=== PATIENT | female | born 1955 | race Two or more races ===

== ENCOUNTER 2018-01-12 11:07 | Emergency (ER) | payer MEDICAID ==
[~2018-01-12] VITALS: Ht 165.1 cm; Wt 74.8 kg
[2018-01-12 11:23] VITALS: BP 131/61
--- NOTE | 2018-01-12 12:56 | Emergency Room Report ---
History of Present Illness General Chief Complaint: Generalized Weakness Source: Patient (Lizeth Marshall DO) Present Illness HPI The patient is a 62-year-old female who presented for increased generalized weakness. Patient gradual onset of symptoms. Patient was noted to have increased nausea associated with the upper back pain. Patient had been recently seen by her physician was prescribed cough medications as well as the medications for pain. Patient had previous history diabetes. She denied diarrhea. She denied abdominal pain. (Reinaldo Butler MD) Allergies: Coded Allergies: No Known Allergies (Unverified , 01/12/18) Patient History Past Medical History: see triage record Reviewed Nursing Documentation: PMH: Agreed; PSxH: Agreed (Reinaldo Butler MD) Nursing Documentation-PMH Past Medical History: No History, Except For Hx Diabetes: Yes (Lizeth Marshall DO) Review of Systems All Other Systems: negative except mentioned in HPI (Reinaldo Butler MD) Physical Exam Vital Signs Date Time Temp Pulse Resp B/P (MAP) Pulse Ox O2 Delivery O2 Flow Rate FiO2 01/12/18 11:13 98.6 118 22 114/65 94 Room Air 98.6 (JoannaLizeth FarnsworthHallie BOSE) Sp02 EP Interpretation: reviewed, normal General Appearance: normal inspection, well appearing, no apparent distress, alert, GCS 15 Head: atraumatic ENT: normal ENT inspection, hearing grossly normal, normal voice Neck: normal inspection, full range of motion, supple, no bony tend Respiratory: normal inspection, lungs clear, normal breath sounds, no respiratory distress, no retraction, no wheezing Cardiovascular #1: regular rate, rhythm, no edema Gastrointestinal: normal inspection, normal bowel sounds, non tender, soft, no guarding, no hernia Genitourinary: no CVA tenderness Musculoskeletal: normal inspection, back normal, normal range of motion Neurologic: normal inspection, alert, responsive, speech normal Psychiatric: normal inspection, judgement/insight normal, mood/affect normal Skin: normal inspection, normal color, no rash (Reinaldo Butler MD) Medical Decision Making Diagnostic Impression: Primary Impression: Episode of generalized weakness Additional Impressions: Lesion of lung Hyperglycemia Dehydration ER Course Patient presented for generalized weakness. Differential diagnosis included was not limited to anemia, urinary tract infection, electrolyte abnormality, hypothyroidism, myocardial infarction, myasthenia gravis, dehydration, among others. Because of complexity of patient's case laboratory testing and imaging studies were ordered. The patient's laboratory testing showed evidence of elevated blood sugar. The patient is given acid blockers as well as the medication for pain. The CT of the abdomen pelvis read by radiology showed Tree-in-bud airspace disease left lower lobe lung and right middle lobe, worrisome for endobronchial spread of infection or metastases. The patient was advised CT findings per she is advised follow-up with primary care physician for further evaluation which may include a bone scan.The patient is advised to follow up with primary care doctor in 1-2 days. Patient is advised to return if any worsening condition or if any changes in status that are concerning. This report is dictated with threadsy pan greaser software which may occasionally lead to discrepancies related to use of this software. Labs Test 01/12/18 13:02 01/12/18 13:15 White Blood Count 8.0 K/UL (4.8-10.8) Red Blood Count 4.28 M/UL (4.20-5.40) Hemoglobin 11.4 G/DL (12.0-16.0) Hematocrit 36.2 % (37.0-47.0) Mean Corpuscular Volume 85 FL (80-99) Mean Corpuscular Hemoglobin 26.7 PG (27.0-31.0) Mean Corpuscular Hemoglobin Concent 31.6 G/DL (32.0-36.0) Red Cell Distribution Width 11.4 % (11.6-14.8) Platelet Count 367 K/UL (150-450) Mean Platelet Volume 6.1 FL (6.5-10.1) Neutrophils (%) (Auto) 66.1 % (45.0-75.0) Lymphocytes (%) (Auto) 26.8 % (20.0-45.0) Monocytes (%) (Auto) 5.3 % (1.0-10.0) Eosinophils (%) (Auto) 0.9 % (0.0-3.0) Basophils (%) (Auto) 0.9 % (0.0-2.0) Sodium Level 136 MMOL/L (136-145) Potassium Level 4.0 MMOL/L (3.5-5.1) Chloride Level 100 MMOL/L (98-107) Carbon Dioxide Level 25 MMOL/L (21-32) Anion Gap 11 mmol/L (5-15) Blood Urea Nitrogen 16 mg/dL (7-18) Creatinine 1.4 MG/DL (0.55-1.30) Estimat Glomerular Filtration Rate 38.0 mL/min (>60) Glucose Level 372 MG/DL (74-106) Calcium Level 9.2 MG/DL (8.5-10.1) Total Bilirubin 0.2 MG/DL (0.2-1.0) Aspartate Amino Transf (AST/SGOT) 50 U/L (15-37) Alanine Aminotransferase (ALT/SGPT) 54 U/L (12-78) Alkaline Phosphatase 277 U/L (46-116) Total Protein 8.4 G/DL (6.4-8.2) Albumin 2.8 G/DL (3.4-5.0) Globulin 5.6 g/dL Albumin/Globulin Ratio 0.5 (1.0-2.7) Urine Color Yellow Urine Appearance Clear Urine pH 5 (4.5-8.0) Urine Specific [place] 1.010 (1.005-1.035) Urine Protein Negative (NEGATIVE) Urine Glucose (UA) 4+ (NEGATIVE) Urine Ketones Negative (NEGATIVE) Urine Occult Blood Negative (NEGATIVE) Urine Nitrite Negative (NEGATIVE) Urine Bilirubin Negative (NEGATIVE) Urine Urobilinogen Normal MG/DL (0.0-1.0) Urine Leukocyte Esterase 1+ (NEGATIVE) Urine RBC 0-2 /HPF (0 - 2) Urine WBC 0-2 /HPF (0 - 2) Urine Squamous Epithelial Cells Occasional /LPF Urine Bacteria Few /HPF (NONE) (Reinaldo Butler MD) Last Vital Signs Date Time Temp Pulse Resp B/P (MAP) Pulse Ox O2 Delivery O2 Flow Rate FiO2 01/12/18 11:23 100.0 107 28 131/61 95 Room Air 100.0 ([facility],Lizeth M. DO) Status: improved (Reinaldo Butler MD) Disposition: HOME, SELF-CARE Condition: Stable Scripts Omeprazole (OMEPRAZOLE) 20 Mg Capsule. 20 MG ORAL DAILY, #30 CAP Prov: Reinaldo Butler MD 01/12/18 Hydrocodone Bit/Acetaminophen 5-325* (NORCO 5-325*) 1 Each Tablet 1 TAB ORAL Q6H PRN for For Pain, #20 TAB 0 Refills Prov: Reinaldo Butler MD 01/12/18 Cephalexin* (KEFLEX*) 500 Mg Capsule 500 MG ORAL EVERY 6 HOURS, #28 CAP Prov: Reinaldo Butler MD 01/12/18 Referrals: NOT CHOSEN IPA/MD,REFERRING (PCP) Lizeth Marshall DO Jan 12, 2018 12:56 Reinaldo Butler MD Jan 13, 2018 23:11
[2018-01-12 13:57] LABS: BASOPHILS % (AUTO) 0.9 % (0.0-2.0); EOSINOPHILS % (AUTO) 0.9 % (0.0-3.0); HEMATOCRIT 36.2 % (37.0-47.0); HEMOGLOBIN 11.4 G/DL (12.0-16.0); LYMPHOCYTES % (AUTO) 26.8 % (20.0-45.0); MEAN CORPUSCULAR VOLUME 85 FL (80-99); MONOCYTES % (AUTO) 5.3 % (1.0-10.0); NEUTROPHILS % (AUTO) 66.1 % (45.0-75.0); PLATELET COUNT 367 K/UL (150-450); RED BLOOD COUNT 4.28 M/UL (4.20-5.40); RED CELL DISTRIBUTION WIDTH 11.4 % (11.6-14.8)
[2018-01-12 13:59] LABS: APPEARANCE,URINE CLEAR; BILIRUBIN, URINE NEGATIVE (NEGATIVE); GLUCOSE, URINE (UA) 4+ (NEGATIVE); KETONES,URINE NEGATIVE (NEGATIVE); LEUKOCYTE ESTERASE ,URINE 1+ (NEGATIVE); NITRITE,URINE NEGATIVE (NEGATIVE); PH,URINE 5 (4.5-8.0); PROTEIN,URINE NEGATIVE (NEGATIVE); UROBILINOGEN,URINE NORMAL MG/DL (0.0-1.0)
[2018-01-12 14:01] LABS: COLOR,URINE YELLOW
[2018-01-12 14:02] LABS: ANION GAP 11 mmol/L (5-15); BLOOD UREA NITROGEN 16 mg/dL (7-18); CALCIUM 9.2 MG/DL (8.5-10.1); CARBON DIOXIDE 25 MMOL/L (21-32); CHLORIDE 100 MMOL/L (98-107); CREATININE 1.4 MG/DL (0.55-1.30); SODIUM 136 MMOL/L (136-145)
[2018-01-12 14:07] LABS: ALANINE AMINOTRANSFERASE 54 U/L (12-78); ALBUMIN 2.8 G/DL (3.4-5.0); ALBUMIN/GLOBULIN RATIO 0.5 (1.0-2.7); ALKALINE PHOSPHATASE 277 U/L (46-116); ASPARTATE AMINO TRANSFERASE 50 U/L (15-37); BILIRUBIN,TOTAL 0.2 MG/DL (0.2-1.0)
[2018-01-12 15:37] VITALS: BP 115/61
--- NOTE | 2018-01-12 17:12 | Diagnostic Imaging Report ---
EXAM: CT Abdomen and Pelvis With Intravenous Contrast CLINICAL HISTORY: PAIN TECHNIQUE: Axial computed tomography images of the abdomen and pelvis with intravenous contrast. CTDI is 18.4 mGy and DLP is 1102 mGy-cm. One or more of the following dose reduction techniques were used: automated exposure control, adjustment of the mA and/or kV according to patient size, use of iterative reconstruction technique. COMPARISON: No relevant prior studies available. FINDINGS: Lung bases: Tree-in-bud airspace disease left lower lobe lung and right middle lobe, worrisome for endobronchial spread of infection or metastases. Mediastinum: Small hiatal hernia. ABDOMEN: Liver: Unremarkable. No mass. Gallbladder and bile ducts: Unremarkable. No calcified stones. No ductal dilation. Pancreas: Unremarkable. No mass. No ductal dilation. Spleen: Unremarkable. No splenomegaly. Adrenals: Unremarkable. No mass. Kidneys and ureters: Unremarkable. No solid mass. No hydronephrosis. Stomach and bowel: Unremarkable. No obstruction. No mucosal thickening. PELVIS: Appendix: Normal appendix. Bladder: Unremarkable. No mass. Reproductive: Uterus and adnexa unremarkable. ABDOMEN and PELVIS: Intraperitoneal space: Unremarkable. No free air. No significant fluid collection. Bones/joints: No acute fracture. No dislocation. Soft tissues: Left buttock tissue calcified injection granuloma. Vasculature: Mild atherosclerotic vascular disease. No abdominal aortic aneurysm. Lymph nodes: Small mesenteric lymph nodes. IMPRESSION: Tree-in-bud airspace disease left lower lobe lung and right middle lobe, worrisome for endobronchial spread of infection or metastases.
[2018-01-12] MEDS ORDERED: NORCO 5-325 TA1 EACH ORAL (17:28)
[2018-01-12] MEDS ORDERED: OMEPRAZOLE20 M2 ORAL (17:28)
[2018-01-12] MEDS ORDERED: CEPHALEXIN500 MG ORAL (17:28)
[2018-01-12 18:03] VITALS: BP 131/61
== END 2018-01-12 18:04 | disposition home or self-care (01) ==
LOC: EMR 11:44
DX: R53.1 Weakness (principal); R91.1 Solitary pulmonary nodule; E11.65 Type 2 diabetes mellitus with hyperglycemia; E86.0 Dehydration
CPT/HCPCS: 36415; 74176; 80053; 81003; 85025; 99284